=== PATIENT | male | born 1965 | race Two or more races ===

== ENCOUNTER 2021-12-09 09:45 | Inpatient (IN) | payer OTHER ==
[~2021-12-09] VITALS: Ht 177.8 cm; Wt 88.5 kg
[2021-12-09] MEDS ORDERED: HYDROCHLOROTH12.5 MG PO (11:05)
[2021-12-09] MEDS ORDERED: CRESTOR10 MG PO (11:05)
[2021-12-09] MEDS ORDERED: TAMS0.4C PO (11:06)
[2021-12-09] MEDS ORDERED: TOPROL XL50 M1 PO (11:06)
[2021-12-09] MEDS ORDERED: HORIZANT300 MG PO (11:06)
[2021-12-09] MEDS ORDERED: AVAPRO300 MG PO (11:06)
[2021-12-14] MEDS ORDERED: OXYCODONE-ACET1 EACH (11:38)
[2021-12-14] MEDS ORDERED: FAMOTIDINE20 MG (11:38)
[2021-12-14] MEDS ORDERED: GABAPENTIN400 MG (11:38)
[2021-12-14] MEDS ORDERED: BACLOFEN10 MG (11:38)
[2021-12-14] MEDS ORDERED: BAYER THERAPY325 MG (11:45)
[2021-12-14] MEDS ORDERED: PANTOPRAZOLE SO40 MG (11:45)
[2021-12-14] MEDS ORDERED: DICLOFENAC POTA50 MG (11:45)
[2021-12-14] MEDS ORDERED: GAVISCON LIQUI355 ML (11:45)
[2021-12-14] MEDS ORDERED: COLACE100 MG PO (16:07)
[2021-12-14] MEDS ORDERED: AMOX-CLAV 875-1 EACH PO (16:09)
[2021-12-14] MEDS ORDERED: NEURONTIN800 MG PO (16:09)
[2021-12-14] MEDS ORDERED: PERCOCET 5-3251 EACH PO (16:09)
[2021-12-14] MEDS ORDERED: MEDROLPACK PO (16:09)
== END 2021-12-16 13:15 | DRG 455 ==
LOC: O/R 12-14 07:13 → SURG 12-14 07:13
PROVIDERS: ADMIT Orthopaedic Surgery Orthopaedic Surgery of the Spine; ATTEND Orthopaedic Surgery Orthopaedic Surgery of the Spine
PROC: 0SG1071 Fusion of 2 or more Lumbar Vertebral Joints with Autologous Tissue Substitute, Posterior Approach, Posterior Column, Open Approach (ICD-10-PCS; 2021-12-14)
PROC: 0ST20ZZ Resection of Lumbar Vertebral Disc, Open Approach (ICD-10-PCS; 2021-12-14)
PROC: XRGC0R7 Fusion of 2 or more Lumbar Vertebral Joints using Custom-Made Anatomically Designed Interbody Fusion Device, Open Approach, New Technology Group 7 (ICD-10-PCS; principal; 2021-12-14 17:00)
DX: M48.062 Spinal stenosis, lumbar region with neurogenic claudication (principal); M41.56 Other secondary scoliosis, lumbar region

== ENCOUNTER 2023-05-11 09:15 | Inpatient (IN) | payer OTHER ==
[~2023-05-11] VITALS: Ht 177.8 cm; Wt 86.2 kg
[~2023-05-11 09:15] MED LIST: AMOX-CLAV 875-1 EACH PO; AVAPRO300 MG PO; BACLOFEN10 MG; BAYER THERAPY325 MG; CATAFLAN; COLACE100 MG PO; CRESTOR10 MG PO; DICLOFENAC POTA50 MG; FAMOTIDINE20 MG; GABAPENTIN400 MG; GAVISCON LIQUI355 ML; HORIZANT300 MG PO; HYDROCHLOROTH12.5 MG PO; MEDROLPACK PO; NEURONTIN800 MG PO; OXYCODONE-ACET1 EACH; PANTOPRAZOLE SO40 MG; PERCOCET 5-3251 EACH; PERCOCET 5-3251 EACH PO; ROVASTATIN; TAMS0.4C PO; TOPROL XL50 M1 PO
[2023-05-16] MEDS ORDERED: PERCOCET 5-3251 EACH PO (12:29)
[2023-05-16] MEDS ORDERED: ENALAPRILAT DIHYDRATE 1.25 MG/ML VIAL IV PRN (12:30)
[2023-05-16] MEDS ORDERED: PROMETHAZINE HCL 50 MG/ML AMPUL IM PRN (12:30)
[2023-05-16] MEDS ORDERED: 0.9 % SODIUM CHLORIDE 1,000 ML IV SCH (12:30)
[2023-05-16] MEDS ORDERED: MEDROLPACK PO (12:31)
[2023-05-16] MEDS ORDERED: COLACE100 MG PO (12:32)
[2023-05-16] MEDS ORDERED: AMOX-CLAV 875-1 EACH PO (12:32)
[2023-05-16] MEDS ORDERED: NEURONTIN800 MG PO (12:33)
[2023-05-16] MEDS ORDERED: GABAPENTIN100 M2 PO (12:33)
[2023-05-16] MEDS ORDERED: MORPHINE SULFATE 4 MG,MORPHINE SULFATE 2 MG IV SCH (13:00)
[2023-05-16] MEDS ORDERED: DOCUSATE SODIUM 100MG CAP PO SCH (13:00)
[2023-05-16] MEDS ORDERED: CEFAZOLIN SODIUM 1,000 MG VIAL ONE (16:45)
[2023-05-16] MEDS ORDERED: VANCOMYCIN HCL 1,000 MG VIAL ONE ×2 (16:45→19:27)
[2023-05-16] MEDS ORDERED: METHYLPREDNISOLONE SOD SUCC 125 MG VIAL IV SCH (17:00)
[2023-05-16] MEDS ORDERED: FAMOtidine 20 MG TABLET PO SCH (17:00)
[2023-05-16] MEDS ORDERED: CEFAZOLIN SODIUM 1,000 MG in 0.9 % SODIUM CHLORIDE 50 ML IV SCH (17:00)
[2023-05-16] MEDS ORDERED: METHYLPREDNISOLONE ACETATE 80 MG/ML VIAL ONE (19:27)
[2023-05-16] MEDS ORDERED: METHYLPREDNISOLONE SOD SUCC 125 MG VIAL ONE (19:27)
[2023-05-16] MEDS ORDERED: VANCOMYCIN HCL 1,000 MG VIAL IV SCH (21:00)
[2023-05-16] MEDS ORDERED: GABAPENTIN 800 MG TABLET PO SCH (21:00)
[2023-05-16] MEDS ORDERED: IOVERSOL 320 MG/ML - 50 ML VIAL IV ONE ×2 (21:16→21:45)
[2023-05-16] MEDS ORDERED: HEMOSTATIC MATRIX WITH THROMBIN KIT TOP ONE ×2 (21:17→22:00)
[2023-05-16] MEDS ORDERED: CEFAZOLIN SODIUM 1,000 MG VIAL IV ONE (21:45)
[2023-05-16] MEDS ORDERED: METHYLPREDNISOLONE ACETATE 80 MG/ML VIAL IM ONE (21:45)
[2023-05-16] MEDS ORDERED: METHYLPREDNISOLONE SOD SUCC 125 MG VIAL IV ONE ×2 (21:45)
[2023-05-16] MEDS ORDERED: VANCOMYCIN HCL 1,000 MG VIAL IV ONE (21:45)
[2023-05-16] MEDS ORDERED: THROMBIN,HU/FIBRINOGEN/CALCIUM 10 ML SYRINGE TOP ONE (21:58)
[2023-05-17] MEDS ORDERED: SODIUM CHLORIDE 0.45 % 1,000 ML IV SCH
[2023-05-17 05:54] LABS: HEMATOCRIT 41.4 % (39.0-48.0); HEMOGLOBIN 14.4 g/dL (13-16.00); MEAN CELL VOLUME 90.2 fL (80.0-100.00); MEAN CORPUSCULAR HEMOGLOBIN 31.3 pg (27.00-32.0); MEAN CORPUSCULAR HGB CONC 34.7 g/dl (32.0-36.0); PLATELET COUNT 234 K/uL (150-450); RED BLOOD COUNT 4.58 M/uL (4.00-6.00); RED CELL DISTRIBUTION WIDTH 13.1 % (11.5-14.5)
[2023-05-17] MEDS ORDERED: OxyCODONE HCL/APAP UD (PERCOCET) PO PRN (06:01)
[2023-05-17 06:57] LABS: CALCIUM 9.5 mg/dL (8.5-10.1); CREATININE SERUM 0.83 mg/dL (0.70-1.30); GFR 94.83; POTASSIUM 4.86 mEq/L (3.5-5.1)
[2023-05-17] MEDS ORDERED: TAMSULOSIN HCL 0.4 MG CAP PO SCH (09:00)
[2023-05-17] MEDS ORDERED: HYDROCHLOROTHIAZIDE 12.5 MG CAPSULE PO SCH (09:00)
[2023-05-17] MEDS ORDERED: IRBESARTAN 300 MG TABLET PO SCH (09:00)
[2023-05-17] MEDS ORDERED: METOPROLOL SUCCINATE 50 MG TAB.SR.24H PO SCH (09:00)
== END 2023-05-17 13:01 | disposition home or self-care (01) | DRG 455 ==
LOC: SURH 05-16 09:15 → O/R 05-16 14:04 → SURH 05-16 20:00 → PED 05-16 23:44
PROVIDERS: ADMIT Orthopaedic Surgery Orthopaedic Surgery of the Spine; ATTEND Orthopaedic Surgery Orthopaedic Surgery of the Spine
PROC: 0SG30K1 Fusion of Lumbosacral Joint with Nonautologous Tissue Substitute, Posterior Approach, Posterior Column, Open Approach (ICD-10-PCS; 2023-05-16)
PROC: 0SG Lower Joints, Fusion (ICD-10-PCS; 2023-05-16)
PROC: 0ST40ZZ Resection of Lumbosacral Disc, Open Approach (ICD-10-PCS; 2023-05-16)
PROC: 0QB30ZZ Excision of Left Pelvic Bone, Open Approach (ICD-10-PCS; 2023-05-16)
PROC: 07DR0ZZ Extraction of Iliac Bone Marrow, Open Approach (ICD-10-PCS; 2023-05-16)
PROC: 4A1104G Monitoring of Peripheral Nervous Electrical Activity, Intraoperative, Open Approach (ICD-10-PCS; 2023-05-16)
PROC: XRGD0R7 Fusion of Lumbosacral Joint using Custom-Made Anatomically Designed Interbody Fusion Device, Open Approach, New Technology Group 7 (ICD-10-PCS; principal; 2023-05-16 20:00)
DX: M43.17 Spondylolisthesis, lumbosacral region (principal); M48.07 Spinal stenosis, lumbosacral region; M51.17 Intervertebral disc disorders with radiculopathy, lumbosacral region; I10 Essential (primary) hypertension

== ENCOUNTER → 2023-05-16 | Outpatient (CLI) | payer OTHER ==
[~2023-05-16] MED LIST changes: +GABAPENTIN100 M2 PO
[2023-05-16 08:10] LABS: INR 1.04; PARTIAL THROMBOPLASTIN TIME 28.7 SECONDS (22.0-34.0); PROTHROMBIN TIME 10.9 SECONDS (9.0-11.5)
== END | disposition home or self-care (01) ==
LOC: LAB 05-15 13:51
PROVIDERS: ATTEND Orthopaedic Surgery Orthopaedic Surgery of the Spine
DX: D68.9 Coagulation defect, unspecified (principal)

== ENCOUNTER 2023-05-29 09:08 | Emergency (ER) | payer OTHER ==
[~2023-05-29] VITALS: Ht 180.3 cm; Wt 85.3 kg
[2023-05-29] MEDS ORDERED: PROMETHAZINE HCL 25 MG/ML AMPUL IM ONE (10:45)
[2023-05-29] MEDS ORDERED: MEPERIDINE HCL/PF 50 MG/ML VIAL IM ONE (10:45)
[2023-05-29 11:00] LABS: HEMATOCRIT 41.6 % (39.0-48.0); HEMOGLOBIN 14.3 g/dL (13-16.00); MEAN CELL VOLUME 88.8 fL (80.0-100.00); MEAN CORPUSCULAR HEMOGLOBIN 30.5 pg (27.00-32.0); MEAN CORPUSCULAR HGB CONC 34.3 g/dl (32.0-36.0); PLATELET COUNT 287 K/uL (150-450); RED BLOOD COUNT 4.69 M/uL (4.00-6.00); RED CELL DISTRIBUTION WIDTH 13.4 % (11.5-14.5)
[2023-05-29 11:21] LABS: CREATININE SERUM 0.85 mg/dL (0.70-1.30); GFR 92.26; POTASSIUM 4.25 mEq/L (3.5-5.1)
== END 2023-05-29 11:57 | disposition home or self-care (01) ==
LOC: ER 09:09
PROVIDERS: General Practice
DX: M79.604 Pain in right leg (principal); Z98.890 Other specified postprocedural states; I10 Essential (primary) hypertension
CPT/HCPCS: 36415; 96372; 99283; J2250; J3490